=== PATIENT | female | born 1950 | race Caucasian/White ===

== ENCOUNTER 2020-06-23 07:30 | Observation (INO) ==
[2020-07-14] MEDS ORDERED: Buffered Lidocaine 1% SYRIN 1 ml INTRADERM ONE ×2 (06:00→06:38)
[2020-07-14] MEDS ORDERED: ceFAZolin 2 GM PREMIX 2 GM/50 ML BAG ONE (06:38)
[2020-07-14] MEDS ORDERED: Midazolam 2 mg/2 ml VIAL 1 mg/ml 2 ml VIAL (2 mg) ONE (06:53)
[2020-07-14] MEDS ORDERED: Propofol 10 MG/ML 20 ML BTL ONE ×2 (06:54→09:54)
[2020-07-14] MEDS: Lactated Ringers 1000 ml BAG 1,000 ML IV SCH ×3 (07:16→21:30)
[2020-07-14] MEDS ORDERED: ROPIVACAINE 5 MG/ML 30 ML BTL (0.5%) ONE ×2 (08:38→08:46)
[2020-07-14] MEDS ORDERED: Dexamethasone IV 4 MG/ML VIAL 1 ml VIAL ONE (08:46)
[2020-07-14] MEDS ORDERED: DiMENhydriNATE IV 50 mg/ml 1 ml VIAL IV PUSH PRN (08:48)
[2020-07-14] MEDS ORDERED: Naloxone 0.4 mg VIAL 0.4 mg/ml 1 ml VIAL IV PRN (08:48)
[2020-07-14] MEDS ORDERED: diPHENhydraMINE IV 50 MG/ML 1 ml VIAL (BENADRYL) IV PRN (08:54)
[2020-07-14] MEDS ORDERED: Ondansetron ODT 4 mg TAB 4 MG TAB PO PRN (08:54)
[2020-07-14] MEDS ORDERED: Ondansetron 4 mg VIAL 2 MG/ML 2 ml VIAL IV PRN (08:54)
[2020-07-14] MEDS ORDERED: diPHENhydraMINE 25 mg TAB PO PRN (08:54)
[2020-07-14] MEDS ORDERED: Magnesium Hydroxide LIQ 30 ML UDC PO PRN (08:54)
[2020-07-14] MEDS ORDERED: Lactulose 30 ml UDC PO PRN (08:54)
[2020-07-14] MEDS ORDERED: Morphine 2 MG/ML SYRINGE IV PRN (08:54)
[2020-07-14] MEDS ORDERED: fentaNYL 100 mcg/2 ml 50 MCG/ML VIAL ONE (10:54)
[2020-07-14] MEDS: fentaNYL 100 mcg/2 ml 50 MCG/ML VIAL IV PRN ×2 (10:59→11:14)
[2020-07-14] MEDS: Magnesium Hydroxide LIQ 30 ML UDC PO SCH ×2 (14:52→20:45)
[2020-07-14] MEDS: Vitamin THERAPEUTIC TAB PO SCH (14:53)
[2020-07-14] MEDS: ceFAZolin 1 GM ADVAN 1 GM in NS 0.9% 50 ML 50 ML IVPB SCH (16:23)
[2020-07-15] MEDS: ceFAZolin 1 GM ADVAN 1 GM in NS 0.9% 50 ML 50 ML IVPB SCH ×2 (00:06→08:15)
[2020-07-15 05:47] LABS: Hematocrit 34 % (35-47); Hemoglobin 11.6 g/dL (12.0-16.0); Platelet Count 187 10^3/uL (150-450)
[2020-07-15] MEDS: Lactated Ringers 1000 ml BAG 1,000 ML IV SCH (05:56)
[2020-07-15 06:03] LABS: BUN/Creatinine Ratio 26.7 (8-20); Calcium 8.9 mg/dL (8.6-10.3); EGFR African American 119.9 (>60); EGFR Non-African American 99.1 (>60); Potassium 4.2 mmol/L (3.5-5.0)
[2020-07-15] MEDS: Vitamin THERAPEUTIC TAB PO SCH (08:13)
[2020-07-15] MEDS: Magnesium Hydroxide LIQ 30 ML UDC PO SCH (08:16)
[2020-07-15] MEDS ORDERED: PTO:Loteprednol 0.5% OPH.SUSP(NF) 5 ML BTL BOTH EYES SCH (09:00)
[2020-07-15 15:36] VITALS: BP 145/55
== END 2020-07-15 15:05 | disposition home or self-care (01) ==
LOC: INTOOBSV 07-14 06:20 → AA 07-14 06:20 → SSU 07-14 11:55
PROVIDERS: ADMIT Orthopaedic Surgery Adult Reconstructive Orthopaedic Surgery; ATTEND Orthopaedic Surgery Adult Reconstructive Orthopaedic Surgery

== ENCOUNTER 2023-08-03 14:29 | Inpatient (IN) ==
[2023-08-03 16:51] LABS: CRP High Sensitivity 0.99 mg/L (<2.00)
[2023-08-03] MEDS: Enoxaparin 40 MG/0.4 ML SYR SUBCUT ONE (17:00)
[2023-08-03 17:06] LABS: TSH Ultra Thyroid Stim Horm 0.65 mcIU/mL (0.34-5.60)
[2023-08-03 18:00] LABS: C Reactive Protein 1.13 mg/L (<8.01)
[2023-08-03] MEDS: NS 0.9% 1000 ml BAG 1,000 ML IV SCH (20:39)
[2023-08-04 04:58] LABS: Hematocrit 36.9 % (35-45); Hemoglobin 12.6 g/dL (11.5-14.3); Mean Corpuscular Hemoglobin 34.1 pg (27-33); Mean Corpuscular Hgb Conc 34.1 g/dL (31-36); Platelet Count 228 10^3/uL (150-450); Red Blood Count 3.69 10^6/uL (3.63-4.92); Red Cell Distribution Width 13.2 % (12-17); White Blood Count 6.3 10^3/uL (3.8-11.8)
[2023-08-04] MEDS: ceFAZolin 2 GM in NS PREMIX 2 GM/100 ML BAG IVPB ONE (05:08)
[2023-08-04 05:59] LABS: Calcium 8.8 mg/dL (8.6-10.3); Creatinine, Serum 0.67 mg/dL (0.51-0.95); Potassium 4.3 mmol/L (3.5-5.0); eGFR CKD-EPI 92.8 (>60)
[2023-08-04] MEDS ORDERED: Midazolam 5 mg/5 ml VIAL 1 mg/ml 5 ml VIAL (5 mg) ONE (08:43)
[2023-08-04] MEDS ORDERED: fentaNYL 100 mcg/2 ml 50 MCG/ML VIAL ONE (08:44)
[2023-08-04] MEDS ORDERED: Lidocaine 1% MPF 5 ML VIAL ONE ×2 (08:44→08:52)
[2023-08-04] MEDS ORDERED: Iohexol 300 (CONTRAST) 10 ML SDV ONE ×2 (08:44→08:52)
[2023-08-04] MEDS: ceFAZolin 1 GM X ONE DOSE (AddVan) IVPB (10:15)
[2023-08-04] MEDS: ceFAZolin VIAL 1 GM in NS 0.9% 50 ML 50 ML IVPB SCH (12:32)
[2023-08-04] MEDS: Iohexol 350 (CONTRAST) 500 ML MDV IV ONE (15:16)
[2023-08-04] MEDS: Enoxaparin 40 MG/0.4 ML SYR SUBCUT SCH (18:30)
[2023-08-05 04:25] LABS: Hematocrit 36.4 % (35-45); Hemoglobin 12.4 g/dL (11.5-14.3); Mean Corpuscular Hemoglobin 34.2 pg (27-33); Mean Corpuscular Hgb Conc 34.1 g/dL (31-36); Mean Corpuscular Volume 100.2 fL (80-97); Mean Platelet Volume 8.6 fL (7.5-11.2); Platelet Count 200 10^3/uL (150-450); Red Blood Count 3.64 10^6/uL (3.63-4.92); Red Cell Distribution Width 12.8 % (12-17); White Blood Count 7.7 10^3/uL (3.8-11.8)
[2023-08-05 05:13] LABS: Calcium 8.4 mg/dL (8.6-10.3); Creatinine, Serum 0.53 mg/dL (0.51-0.95); Magnesium 1.8 mg/dL (1.9-2.7); eGFR CKD-EPI 98.2 (>60)
[2023-08-05] MEDS: Benzocaine/Menthol LOZ PO PRN (08:13)
[2023-08-05] MEDS: Magnesium Sulfate 2 gm BAG 2 GM/50 ML BAG IVPB ONE (08:13)
[2023-08-05 12:41] VITALS: BP 112/81
== END 2023-08-05 14:05 | disposition home or self-care (01) | DRG 244 ==
LOC: ED 14:29 → EDHOLD 15:41 → ICU 16:07
PROVIDERS: ADMIT Internal Medicine Critical Care Medicine; ATTEND Internal Medicine Critical Care Medicine